=== PATIENT | female | born 1955 | race Caucasian/White ===

== ENCOUNTER 2020-12-22 14:17 | Outpatient (CLI) | payer BC, SELFPAY ==
--- NOTE | 2020-12-22 14:19 | ECG_ITS ---
Measurements Intervals [place] Rate: 56 P: 76 CO: 141 QRS: 32 QRSD: 88 T: 73 QT: 446 QTc: 433 Interpretive Statements SINUS BRADYCARDIA DELAYED PRECORDIAL R/S TRANSITION BORDERLINE ST-T WAVE ABNORMALITY- ANT/HIGH LAT LEADS BASELINE ARTIFACT- I, II, III, AVL, AVF BORDERLINE ECG Electronically Signed On 12-22-2020 16:41:00 CDT by Marv Krishnamurthy D.O.
== END 2020-12-22 14:18 | disposition home or self-care (01) ==
LOC: CHSLAB 14:19
PROVIDERS: PCP Family Medicine; Visit Provider Internal Medicine Cardiovascular Disease
DX: R07.9 Chest pain, unspecified (principal)
CPT/HCPCS: 93005

== ENCOUNTER 2020-12-31 08:45 | Outpatient (CLI) | payer BC, SELFPAY ==
--- NOTE | 2020-12-31 08:50 | ECHO_ITS ---
Patient Info Name: Ciara Naranjo Age: 65 years : 1955 Gender: Female Ht: 66 in Wt: 290 lbs BSA: 2.55 m2 HR: 85 bpm BP: 148 / 45 mmHg Heart Rhythm: Sinus Rhythm Technical Quality: Poor Exam Date: 12/31/2020 8:49 AM Exam Location: [facility] Patient Status: Outpatient Admit Date: 12/31/2020 Staff Ordering Physician: Marv Krishnamurthy DO Pit Crane Operator: Adriana Nino RDCS Attending Provider: Marv Krishnamurthy DO Referring Physician: Raghu FLORES; Exam Type: CA echo dop color flow w con Study Info Indications R06.00 - Dyspnea, unspecified Complete two-dimensional, color flow and Doppler transthoracic echocardiogram is performed with contrast to opacify the left ventricle and to improve the deliniation of the left ventricle endocardial borders. Strain analysis performed. Contrast/Agitated Saline Contrast/Ag. Saline: Definity Amount: 4.00 ml New IV Access: Antecubital Space and Left Site Condition: No extravasation, Site dressing applied and IV removed Reason for Poor Study: patient body habitus History/Risk Factors Hypertension: Yes Dyslipidemia: No Congenital Heart Disease (CHD): No Peripheral Arterial Disease (PAD): No Myocardial Infarction (MA): No Chronic Lung Disease: No Obesity: Yes Renal Disease: Yes Coronary Artery Disease (CAD) No Congestive Heart Failure (CHF): No Cardiomyopathy/LV Systolic Dysfunction: No Diabetes Mellitus: No COPD: On Meds Tobacco Use: Former Cerebrovascular Disease: No Family History: Coronary Artery Disease Deep Vein Thrombosis (DVT): None Dialysis: None Frailty Scale (CSHA): 2: Well Cardiac Arrest: No Summary 1. Left ventricular chamber dimension is normal. 2. Definity contrast administered improved wall motion interpretation. 3. Left ventricular systolic function is normal, estimated at 55-60%. 4. There is moderately increased left ventricular wall thickness. 5. The left ventricular diastolic function is grade I diastolic dysfunction. 6. E/e' 11 is mildly elevated. 7. Global longitudinal strain is abnormal at -11.2%. Left Ventricle E/e' 11 is mildly elevated. Global longitudinal strain is abnormal at -11.2%. Definity contrast administered improved wall motion interpretation. Left ventricular chamber dimension is normal. Left ventricular systolic function is normal, estimated at 55-60%. There is moderately increased left ventricular wall thickness. The left ventricular diastolic function is grade I diastolic dysfunction. Right Ventricle Right ventricular chamber dimension is normal. Right ventricular systolic function is normal. Left Atria Left atrial chamber dimension is normal. Right Atria Right atrial chamber dimension is normal. Aortic Valve The aortic valve is trileaflet. There is no aortic valve stenosis. There is no aortic valve regurgitation. Pulmonic Valve There is no pulmonic regurgitation. Mitral Valve There is no mitral valve stenosis. There is no mitral valve regurgitation. Tricuspid Valve There is no tricuspid valve regurgitation. Pericardium/Pleural There is no pericardial effusion. Inferior Vena Cava Inferior vena cava is not well visualized. Aorta The aortic root size at the sinus of Valsalva is normal. Left Ventricular Outflow Tract Nam
== END 2020-12-31 08:46 | disposition home or self-care (01) ==
LOC: CHSIMG 08:46
PROVIDERS: PCP Family Medicine; Visit Provider Internal Medicine Cardiovascular Disease
DX: R06.00 Dyspnea, unspecified (principal)
CPT/HCPCS: C8929

== ENCOUNTER → 2021-01-17 03:04 | Outpatient (CLI) | payer BC, SELFPAY ==
[2021-01-17 19:46] LABS: SARS-CoV-2 RNA PCR Negative
== END ==
PROVIDERS: PCP Family Medicine; Visit Provider Specialist
DX: Z01.812 Encounter for preprocedural laboratory examination (principal); Z20.822 Contact with and (suspected) exposure to COVID-19
CPT/HCPCS: C9803; U0003; U0005

== ENCOUNTER 2021-01-21 01:50 | Day surgery (SDC) | payer BC, SELFPAY ==
[2021-01-21] VITALS (15 sets, daily range): BP systolic 118–136; BP diastolic 49–80; PULSE 59–71; RESP 14–25; TEMP 36.4–36.6; O2SAT 93–98; BMI 46.7
[2021-01-21 08:51] LABS: Basophils Absolute Auto 0.1 K/mm3 (0.0-0.1); Basophils Percent Auto 0.9 % (0.2-1.2); Eosinophils Absolute Auto 0.2 K/mm3 (0-0.3); Eosinophils Percent Auto 3.3 % (0-4.4); Hematocrit 41.1 % (37.0-47.0); Hemoglobin 13.1 g/dL (12.0-15.0); Immature Granulocyte Absolute 0.03 K/mm3 (0.00-0.031); Immature Granulocyte Percent A 0.5 % (0-0.5); Lymphocytes Absolute Auto 1.05 K/mm3 (0.9-3.2); Lymphocytes Percent Auto 15.8 % (18.3-44.2); Mean Corpuscular HGB Conc 31.9 g/dl (32-36); Mean Corpuscular Hemoglobin 28.7 pg (26-34); Mean Corpuscular Volume 90.1 fl (80-100); Mean Platelet Volume 10.2 fl (7.4-10.4); Monocytes Absolute Auto 0.6 K/mm3 (0.1-0.6); Monocytes Percent Auto 8.9 % (2.6-8.5); Neutrophils Absolute Auto 4.7 K/mm3 (1.3-6.7); Neutrophils Percent Auto 70.6 % (45.5-73.1); Platelet Count Result 215 k/mm3 (150-375); Red Blood Count 4.56 M/mm3 (4.2-5.4); Red Cell Distribution Width 13.9 % (11.5-14.5); White Blood Count 6.6 K/mm3 (4.5-10.0)
[2021-01-21 09:03] LABS: Anion Gap 8 mmol/L (8-16); Blood Urea Nitrogen 17 mg/dL (7-17); Calcium 9.5 mg/dL (8.4-10.2); Carbon Dioxide 29 mmol/L (22-30); Chloride 102 mmol/L (98-107); Estimated Glomerular Filt Rate 45; Glucose 120 mg/dL (65-105); Potassium 4.3 mmol/L (3.4-5.0); Sodium 139 mmol/L (137-145)
[2021-01-21 09:09] LABS: INR 0.9; Prothrombin Time 12.5 Seconds (11.1-14.7)
--- NOTE | 2021-01-21 10:30 | WPDMODSED ---
Moderate Sedation Note-Pt Data Patient Data Diagnosis: Exertional dyspnea high coronary calcium score diabetes hypertension Present Complaint: this is a 65-year-old woman who is obese and has diabetes reporting about a 2 year history of exertional dyspnea which is steadily worsening. A coronary CTA was done at another hospital which demonstrated extensive calcium. This created of artifact were stenosis could not be commented upon Procedure to be performed/Plan: left heart catheterization Allergies Allergy/AdvReac Type Severity Reaction Status Date / Time No Known Allergies Allergy Verified 01/12/21 15:09 Home Medications Medication Instructions Recorded Confirmed Type albuterol sulfate 90 mcg/actuation 1 inhalation INHALATION Q4H PRN 09/24/19 01/21/21 History aerosol inhaler sertraline 50 mg tablet 25 mg PO DAILY tablet 09/24/19 01/21/21 History hydrochlorothiazide 25 mg tablet 25 mg PO DAILY #90 tablet 04/03/20 01/21/21 Rx Saccharomyces boulardii 250 mg 250 mg PO BID 06/23/20 01/21/21 History capsule wheat dextrin 5 gram/7.4 gram oral 1 g PO 06/23/20 01/12/21 History powder amlodipine 10 mg tablet See Rx Instructions .ROUTE 12/03/20 01/21/21 Rx .COMPLEX #30 tablet carvedilol 6.25 mg tablet 6.25 mg PO Q12H #60 tablet 12/22/20 01/21/21 Rx aspirin 81 mg tablet,delayed 81 mg PO DAILY #30 tablet 01/12/21 01/21/21 Rx release ezetimibe 10 mg tablet 10 mg PO DAILY #30 tablet 01/12/21 01/21/21 Rx albuterol sulfate 5 mg INHALATION Q4H PRN 01/21/21 01/21/21 History aspirin [Aspir-81] 81 mg PO DAILY 01/21/21 01/21/21 History ezetimibe [Zetia] 10 mg PO DAILY 01/21/21 01/21/21 History hyoscyamine 25 mg PO PRN PRN 01/21/21 01/21/21 History Current Medications: Active Medications Sodium Chloride (Normal Saline Iv) 500 mls @ 100 mls/hr IV CONT .Q5H RAMONE Sedation/Anesthesia: No previous sedation/anesthesia problems (including family history). [facility] Past Medical History Medical History Chronic obstructive pulmonary disease CKD (chronic kidney disease) stage 3, GFR 30-59 ml/min BOSTON (dyspnea on exertion) Dyslipidemia Essential hypertension Hypersomnia Obstructive sleep apnea Right wrist pain Surgical History Surgical History History of bilateral knee replacement Family History Family History Father Hypertension Cerebrovascular accident Family history of malignant neoplasm Family history of elevated blood lipids Family history of cardiovascular disease Mother Hypertension Family history of arthritis Mother Hypertension Father Family history of coronary artery disease Social History Social History Smoking status: Former smoker Smoking end date: 08/22/15 Alcohol intake: current Mod Sed Physical Exam Physical Exam Pre Procedural Exam: Normal: Appearance ( pleasant obese white female no distress), Neck, Throat, Airway, Lungs, Heart Rate, Heart Rhythm, Neuro Exam and Extremities and Variation: Heart Size ( PMI difficult to palpate) Hours since solid foods: 12 Hours since liquid intake: 12 Internal Medicine - PN: Obj Da Meds/Results Medications: Active Medications Generic Name Dose Route Start Last Admin Trade Name Freq PRN Reason Stop Dose Admin Sodium Chloride 500 mls @ 100 mls/hr 01/21/21 08:30 Normal Saline Iv IV CONT .Q5H RAMONE Labs CBC & Chem 7: 01/21/21 08:41 01/21/21 08:41 Labs: Laboratory Results - last 24 hr 01/21/21 01/21/21 01/21/21 08:41 08:41 08:41 WBC 6.6 RBC 4.56 Hgb 13.1 Hct 41.1 MCV 90.1 MCH 28.7 MCHC 31.9 L RDW 13.9 Plt Count 215 MPV 10.2 Immature Gran % (Auto) 0.5 Neut % (Auto) 70.6 Lymph % (Auto) 15.8 L Gray % (Auto) 8.9 H Eos %
--- NOTE | 2021-01-21 11:19 | WPDCARDPROC ---
Cardiac Cath Procedure Note Date of procedure:: 01/21/21 Performing physician:: Francisco Javier Boyd MD Indication:: exertional dyspnea coronary artery disease as evidenced by extensive calcification by CT a Brief clinical history:: this is a 65-year-old diabetic lady who has been experiencing gradually worsening BOSTON for about 2 years. A coronary CTA demonstrated heavily calcified vessels. Procedure Procedure performed:: Left ventriculography coronary angiography Sedation/Medication given:: fentanyl 50 mg Versed 2 mg case start time 10:48 a.m. case end time 11:14 a.m. sedation provided by Adriana Valerio RN, trained observer Access site:: right femoral artery Estimated blood loss:: 20-30 cc Procedure note:: patient was brought to the cardiac postabsorptive state where the right femoral triangle was prepared and draped in the usual fashion. Anesthesia was provided with 1% lidocaine infiltrated locally. Using the modified Seldinger technique a 5 [place] sheath was placed into the femoral artery. After this left heart catheterization was carried out. I used a 5 [place] angled pigtail catheter to measure left-sided hemodynamics and inject left ventriculogram in the MCGRATH projection. Following this I used a standard 5 [place] FL4 catheter to engage and inject the left coronary artery and then a 5 [place] JR4 catheter to engage and inject the right coronary artery. Cineangiograms were then reviewed and the case was terminated. An angiogram was done of the femoral artery through the sheath after which I determine the sheath will be removed with direct manual compression. She left the catholic priest with no sign of any procedural complication and no evidence of a groin hematoma. Procedure was well tolerated. Findings:: Hemodynamics: Central aortic pressure is 146 over 70 left ventricle 146 over 5 end-diastolic pressure 16 there is no gradient upon pullback across the aortic valve. Left ventricle: The left ventricle is a normal size chamber with good contractility seen in all segments the global ejection fraction I would visually estimated to be 55%. The left and right coronary arteries are heavily calcified noted prior to any angiogram being performed. There was particularly heavy calcification proximal half of the LAD. The left main coronary artery is nicely patent the left anterior descending is a moderate caliber artery extending down to around the apex. There are 3 areas of significant atherosclerotic stenosis in the LAD itself there is a moderate to high-grade proximal eccentric plaque which is heavily calcified results in about 80-90% stenosis at the origin of a large septal perforating complex. Distal to this there are 2 subsequent 90% lesions in the LAD proximally and the last a high-grade stenosis of 90% is at the origin of the 2nd diagonal branch in the midportion of the artery. There is a large septal perforating complex that has a proximal 99% stenosis. The circumflex is relatively small to medium in caliber has mild luminal irregularities but no high-grade lesions are seen. Right coronary artery is large in caliber dominant to the posterior circulation. There was some collateral filling circumflex seen to the distal RCA. There is a proximal 99% stenosis in the RCA which was also moderately calcified. Distal to this there is KATIUSKA 0.5 flow in the RCA proper. With prolonged angiography the distal RPDA and RPL branches can be seen to be reconstituted very slowly. Conclusion:: 1. Severe 2 vessel coronary artery disease with right coronary dominant circulation. Heavily calcified LAD with 3 high-grade proximal lesions 1 of which is highly eccentric. The large septal perforating complex also has subtotal proximal stenosis. 2. Subtotal proximal stenosis of the dominant RCA which is also calcified the distal RCA receives some left to right collateral filling. 3. Remarkably well preserved left ventricular systolic
--- NOTE | 2021-01-21 17:27 | SUR.PHASEII ---
RN went through discharge paperwork. Patient verbalized understanding and had no questions. Patient escorted off the unit by wheelchair and discharged with daughter.
== END 2021-01-21 17:20 | disposition home or self-care (01) ==
PROVIDERS: PCP Family Medicine; Visit Provider Specialist
PROC: 4A023N7 Measurement of Cardiac Sampling and Pressure, Left Heart, Percutaneous Approach (ICD-10-PCS; CPT 93452; principal; 2021-01-21 10:00)
DX: I25.10 Atherosclerotic heart disease of native coronary artery without angina pectoris (principal); R93.1 Abnormal findings on diagnostic imaging of heart and coronary circulation; R06.09 Other forms of dyspnea; I12.9 Hypertensive chronic kidney disease with stage 1 through stage 4 chronic kidney disease, or unspecified chronic kidney disease; N18.30 Chronic kidney disease, stage 3 unspecified; E78.5 Hyperlipidemia, unspecified; G47.33 Obstructive sleep apnea (adult) (pediatric); J44.9 Chronic obstructive pulmonary disease, unspecified; Z79.51 Long term (current) use of inhaled steroids; Z79.82 Long term (current) use of aspirin; Z87.891 Personal history of nicotine dependence
CPT/HCPCS: 36415; 80048; 85025; 85610; 93458; C1887; C1894; J0461; J1644; J2250; J3010; J7040

== ENCOUNTER 2021-07-13 13:49 | Outpatient (CLI) | payer BC, SELFPAY ==
--- NOTE | ~2021-07-13 | XR_ITS ---
EXAMINATION: XR chest 2V 07/13/2021 14:10 INDICATION: Dyspnea PROCEDURE: 2 view chest COMPARISON: 04/17/2016 FINDINGS: The lungs are clear. The cardiomediastinal silhouette is within normal limits. There are no pleural effusions. There is no pneumothorax suspected. The lungs are hyperinflated which is cons istent with, but not diagnostic of chronic obstructive pulmonary disease. There are surgical changes of the sternum. IMPRESSION: 1: NO ACUTE CARDIOPULMONARY DISEASE. Reviewed, dictated and finalized at location A. RNAL CHILD NURSE
--- NOTE | 2021-07-13 13:52 | ECG_ITS ---
Measurements Intervals [place] Rate: 73 P: 80 AR: 163 QRS: 57 QRSD: 88 T: 83 QT: 395 QTc: 438 Interpretive Statements SINUS RHYTHM POSSIBLE LEFT ATRIAL ENLARGEMENT DELAYED PRECORDIAL R/S TRANSITION LOW QRS VOLTAGE IN LIMB LEADS BORDERLINE T WAVE ABNORMALITY- ANT/HIGH LAT LEADS BASELINE ARTIFACT- I, II, AVR, AVL BORDERLINE ECG Electronically Signed On 07-13-2021 17:06:28 MACHINE FEEDER RAW STOCK by Marv Krishnamurthy D.O.
== END 2021-07-13 13:50 | disposition home or self-care (01) ==
PROVIDERS: PCP Family Medicine; Visit Provider Internal Medicine Cardiovascular Disease
DX: R06.00 Dyspnea, unspecified (principal)
CPT/HCPCS: 71046; 93005

== ENCOUNTER 2022-06-01 14:53 | Outpatient (RCR) | payer MEDICARE, OTHER, SELFPAY ==
--- NOTE | 2022-06-01 16:05 | PTOPEVAL1 ---
Assessment and note entered by JT File, PT Evaluation Information Assessment Status Evaluation Diagnosis lower back pain, R greater trochanter pain Onset 05/24/22 Subjective Information patient reports sh eis not sure what happened. she reports she came out of the bathroom at home. she reports she had an immediate severe pain in the R hip. she reports she walked on her tip toes for days around her home. she reports she also had to use a walker to get around home. she reports she saw a huge bruise on her hip one day. she reports this was hard to touch as well. she reports she has had back pain for years. she reports she had a cortisone injection which helped a lot. she reports she has increased pain in the lower back with standing to long (doing dishes and cooking). she reports also increased lower back pain with walking. she reports she has not had any pain in the R hip for a few weeks. she reports she does have some tenderness to palpation still, but no where near the pain she day. she reports the pain at the time did run down the leg to the knee. Reported Pain Level Pain Score 1,0: Self Report Assessment PT Clinical Summary mrs. bell presents to skilled PT services for evaluation and treatment of lower back and R hip pain. upon examination, patient presents with residual symptoms of a R greater trochanteric bursitis, DDD of the lumbar spine, and bilateral hip OA (worse on the R). she would do well to attend and participate in skilled PT services to improve her objective/functional deficits and progress towards a return to her prior level functional activity performance/quality of life. Plan of Care Interventions Electrical Stimulation,Gait Training,Hot Pack/Cold Pack,Manual Therapy,Neuro Re-education,Patient/ Caregiver Educati,Therapeutic Activities, Therapeutic Exercise PT Services Indicated Yes Treatment Frequency and 3x weekly for 12 visits Duration These treatments will address the objective and functional deficits as defined above. The patient will be advanced safely and appropriately in order for the patient to progress towards his/her prior level of function. Additional exercises will be introduced and as well as a comprehensive home exercise program upon discharge, if needed, ?to ensure carryover of functional gains achieved in the clinic. This treatment plan has been reviewed and agreement upon by the patient.
--- NOTE | 2022-06-23 14:10 | PTOPPROGNS ---
Assessment and note entered by JT File, PT Evaluation Information Assessment Status Progress Diagnosis lower back pain, R greater trochanter pain Onset 05/24/22 Subjective Information patient reports she is feeling better this date. she reports she is on day 7 of steroids and her pain is loer and her breathing is better. she reports she continues to struggle with standing for prolonged time to perform dish washing at home . Assessment PT Clinical Summary mrs. bell presents to skilled PT for her 10th skilled therapy visit. she presents with decreased pain this date due to having been on steroids for 7 days now. she was educated/progress in core exercises and LE/hip strengthening to address continued deficits. she has made progress towards all goals, but has only 2 thus far. Plan of Care Interventions Gait Training,Manual Therapy,Neuro Re-education, Patient/Caregiver Educati,Therapeutic Activities, Therapeutic Exercise PT Services Indicated Yes Treatment Frequency and continue skilled PT 3x weekly for 2 more visits Duration per the initial POC These treatments will address the objective and functional deficits as defined above. The patient will be advanced safely and appropriately in order for the patient to progress towards his/her prior level of function. Additional exercises will be introduced and as well as a comprehensive home exercise program upon discharge, if needed, ?to ensure carryover of functional gains achieved in the clinic. This treatment plan has been reviewed and agreement upon by the patient.
== END 2022-06-28 15:42 | disposition home or self-care (01) ==
LOC: CHSPT 14:53
PROVIDERS: Visit Provider Specialist
DX: M54.50 Low back pain, unspecified (principal); M70.61 Trochanteric bursitis, right hip
CPT/HCPCS: 97014; 97110; 97140; 97161; G0283

== ENCOUNTER 2023-12-12 08:33 | Outpatient (CLI) | payer MEDICARE, OTHER, SELFPAY ==
--- NOTE | ~2023-12-12 | XR_ITS ---
EXAMINATION: XR hand RT min 3V DATE: 12/12/2023 08:56 INDICATION: Right thumb joint pain. TECHNIQUE: 4 views of right hand were obtained. COMPARISON: None. FINDINGS: Bone alignment is normal. No fracture. There is moderate osteoarthritis of first carpometac arpal joint and mild to moderate osteoarthritis of most of the metacarpophalangeal joints and interph alangeal joints. There is severe osteoarthritis of fifth distal interphalangeal joint. There is a sma ll loose body in the radiocarpal compartment dorsally. IMPRESSION: 1. Polyarticular osteoarthritis. Reviewed, dictated and finalized at location E.
== END 2023-12-12 08:34 | disposition home or self-care (01) ==
LOC: CHSIMG 08:36
PROVIDERS: PCP Family Medicine; Visit Provider Orthopaedic Surgery
DX: M79.641 Pain in right hand (principal); M19.041 Primary osteoarthritis, right hand
CPT/HCPCS: 73130

== ENCOUNTER 2025-02-12 15:46 | Outpatient (CLI) | payer MEDICARE, OTHER, SELFPAY ==
--- NOTE | 2025-02-12 15:52 | ECHO_ITS ---
Patient Info Name: Ciara Naranjo Age: 69 years : 1955 Gender: Female Ht: 66 in Wt: 300 lbs BSA: 2.60 m2 HR: 77 bpm BP: 168 / 66 mmHg Technical Quality: Poor Exam Date: 02/12/2025 3:57 PM Patient Status: O Admit Date: 02/12/2025 Exam Type: CA echo dop color flow w con Complete two-dimensional, color flow and Doppler transthoracic echocardiogram is performed with contrast to opacify the left ventricle and to improve the deliniation of the left ventricle endocardial borders. Thermometer Production Worker: Mari Young Attending Provider: Marv Krishnamurthy DO Contrast/Agitated Saline Contrast/Ag. Saline: Definity Amount: 2.00 ml Administered By: Mari Young Existing IV Access: Yes IV Access Condition: patent with no signs of infiltration Summary 1. Technically suboptimal study due to poor sonographic images. 2. Definity contrast administered improved wall motion interpretation. 3. Left ventricular chamber dimension is normal. 4. Left ventricular systolic function is normal, estimated at 60-65. 5. The left ventricular diastolic function is normal. 6. E/e' 6 is not elevated. 7. No pulmonary hypertension, estimated pulmonary arterial systolic pressure is 16 mmHg. Left Ventricle Technically suboptimal study due to poor sonographic images. Left ventricular chamber dimension is normal. Left ventricular systolic function is normal, estimated at 60-65. The left ventricular diastolic function is normal. Definity contrast administered improved wall motion interpretation. E/e' 6 is not elevated. Right Ventricle Right ventricular chamber dimension is not well visualized. Left Atria Left atrial chamber dimension is normal. Right Atria Right atrial chamber dimension is normal. Aortic Valve The aortic valve is not well visualized. Cannot determine number of aortic valve leaflets. There is no aortic valve stenosis. There is no aortic valve regurgitation. Pulmonic Valve The pulmonic valve is not well visualized. Mitral Valve There is no mitral valve stenosis. There is no mitral valve regurgitation. Tricuspid Valve There is no tricuspid valve regurgitation. No pulmonary hypertension, estimated pulmonary arterial systolic pressure is 16 mmHg. Pericardium/Pleural There is no pericardial effusion. Inferior Vena Cava Normal inferior vena cava with >50% collapse upon inspiration consistent with normal right atrial pressure, 5 mmHg. Aorta The aortic root size at the sinus of Valsalva is normal. Left Ventricular Outflow Tract Name Value Normal LVOT Doppler LVOT Peak Velocity 104 cm/s LVOT Peak Gradient 4 mmHg LVOT Mean Gradient 2 mmHg LVOT VTI 23 cm LVOT VTI/AV VTI Ratio 0.7 Pulmonic Valve Name Value Normal PV Doppler PV Peak Velocity 96 cm/s PV Peak Gradient 4 mmHg Mitral Valve Name Value Normal MV Diastolic Function MV E Peak Velocity 98 cm/s MV A Peak Velocity 117 cm/s MV E/A 0.8 MV Decel Time (PW) 255 ms MV Annular TDI MV E/e' (Septal) 7.6 MV E/e' (Lateral) 5.9 MV E/e' (Average) 6.7 Tricuspid Valve Name Value Normal TV Regurgitation Doppler TR Peak Velocity 169 cm/s TR Peak Gradient 11 mmHg Estimated PAP/RSVP RA Pressure 5 mmHg <=5 PA Systolic Pressure 16 mmHg <36 RV Systolic Pressure 16 mmHg <36 TV Annular TDI TV Lateral Angela s' Velocity 12.7 cm/s >=9.5 Aortic Valve Name Value Normal AV Doppler AV Peak Velocity 160 cm/s AV Peak Gradient 10 mmHg AV Mean Gradient 6 mmHg AV VTI 31 cm AV DI (Pako) 0.65 Report Signatures
[2025-02-12] MEDS: PERFLUTREN LIPID MICROSPHERES 1.5 ML VIAL DILUTED TO 10 ML TOTAL VOLUME IV PUSH (16:50)
--- NOTE | 2025-02-12 17:20 | IVDEFINITY ---
Prior to administration of IV Definity the patient was educated on the risks and benefits of the imaging enhancing agent including potential adverse side effects. The patient verbalized understanding. Allergies were verified. No exclusion criteria were identified and at least one of the following inclusion criteria were met: 1) physician request, 2) patient technically difficult to image (per the [place] [employer] guidelines of two or more segments not discernable within the apical view), or 3) questionable left ventricular function. ?
== END 2025-02-12 15:47 | disposition home or self-care (01) ==
LOC: CHSIMG 15:48
PROVIDERS: PCP Family Medicine; Visit Provider Internal Medicine Cardiovascular Disease
DX: R06.00 Dyspnea, unspecified (principal)
CPT/HCPCS: C8929